=== PATIENT | female | born 1955 | race American Indian/Alaskan Native ===

== ENCOUNTER 2021-12-10 17:48 | Inpatient (IN) | payer MEDICARE ==
[2021-12-10] MEDS ORDERED: levETIRAcetam 1000 MG/NS 0.75% 1,000 MG/100 ML BAG IV ONE ×3 (17:58→20:16)
--- NOTE | 2021-12-10 18:00 | Emergency Department Report ---
ED General Adult HPI - General Chief complaint: Altered Mental Status Stated complaint: ALTER MENTAL Time Seen by Provider: 12/10/21 17:56 Source: family, EMS (Verbal report received from emergency medical services. EMS documentation not available at time of chart dictation ), RN notes reviewed Mode of arrival: Stretcher Limitations: Altered Mental Status, Physical Limitation - History of Present Illness Initial comments: The patient was evaluated in the emergency department for symptoms described in the history of present illness. He/she was evaluated in the context of the global COVID-19 pandemic, which necessitated consideration that the patient might be at risk for infection with the virus that causes COVID-19. Institutional protocols and algorithms that pertain to the evaluation of patients at risk for COVID-19 are in a state of rapid change based on information released by regulatory bodies including the CDC and federal and state organizations. These policies and algorithms were followed during the patient's care in the emergency department. Please note that these policies, procedures and recommendations changed on a rapid basis. Primary care doctor: Dr. Sergio Ramos. Sister: Ms. Andria Yuan; [phone] Son, Mr. Ezekiel Qureshi; [phone] Past medical history: GERD without esophagitis, dysuria, hypertension, hypoka lemia, hyperlipidemia, insomnia, diabetes. Seizure, or convulsion/conversion disorder. Chronic respiratory failure, unspecified with hypoxia or hypercapnia. The patient is a 66-year-old female. She presents to the ER with EMS. The patient is altered, and history is obtained from EMS. EMS reports that they were called by a local [facility], because the patient was found unresponsive, on the floor. It is not known how long the patient was on the floor. It is not known what mechanism proceed to the patient being on the floor. As per [facility] documentation, temperature at the [facility] was 95.6 F, blood pressure 144/88, respirations 18, pulse 72, saturating at 91% on room air, with blood glucose of 223. In the emergency room, the patient is sleepy. She moves 4 extremities in response to painful stimuli. She is altered. She is not able to describe exacerbating, relieving factors or aggravating factors. She is not able to describe qualitative nature of symptoms. Patient immediately seen and evaluated by myself upon arrival with EMS. Appropriate orders initiated, including head of bed elevation, aspiration precautions. While in the emergency room, the patient began to vomit. Head of bed is elevated, and she is aggressively suction. The patient desaturates. She is placed on high flow high humidity nasal cannula. Patient's sister is at the bedside, Mrs. Andria Yuan. Extensive discussion had regarding goals of care and advanced directives. Ms. Yuan provides verbal consent for emergency intubation. She further endorses that the patient still would not to receive CPR or chest compressions if she experiences a cardiac arrest. The patient was intubated in the emergency room. Please see procedure note. No additional history is available at this time. -: unknown - Related Data Allergies Allergy/AdvReac Type Severity Reaction Status Date / Time No Known Allergies Allergy Unverified 12/10/21 19:51 ED Review of Systems ROS: Stated complaint: ALTER MENTAL Other details as noted in HPI Comment: Unobtainable due to pts medical conditions ED Physical Exam - General Limitations: Altered Mental Status, Physical Limitation General appearance: lethargic (Initially the thyroid), obtunded - Head Head exam: Present: atraumatic, normocephalic - Eye Eye exam: Present: normal appearance - ENT ENT exam: Present: normal orophraynx, mucous membranes moist, normal external ear exam, other (Secretions noted in the mouth) - Neck Neck exam: Present: normal inspection. Absent: tenderness, meningismus - Respiratory Respiratory exam: Present: respiratory distress, rhonchi (After intubation) - Cardiovascular Cardiovascular Exam: Present: normal rhythm, tachycardia (After intubation), normal heart sounds. Absent: bradycardia, irregular rhythm, systolic murmur, diastolic murmur, rubs, gallop - GI/Abdominal GI/Abdominal exam: Present: soft, other (Feeding tube noted in abdomen. No redness, pus or streaking noted.). Absent: distended, tenderness, guarding, rebound, rigid, pulsatile mass - External exam: Present: normal external exam (Chaperoned by nurse Liz Diaz) - Extremities Exam Extremities exam: Present: normal inspection, other (2+ pulses noted in the bilateral upper and lower extremities. There is no palpable cord. negative Homans sign. Muscular compartments are soft. The pelvis is stable.). Absent: pedal edema, calf tenderness - Back Exam Back exam: Present: normal inspection. Absent: tenderness, CVA tenderness (R), CVA tenderness (L), paraspinal tenderness, vertebral tenderness - Neurological Exam Neurological exam: Present: altered (Prior to intubation, the patient is breathing spontaneously. There is no obvious facial droop. Pupils are midpoint and minimally reactive to light bilaterally. Moves 4 extremities in response to painful stimuli) - Skin Skin exam: Present: warm, dry, intact, normal color. Absent: rash ED Course Vital Signs 12/10/21 12/10/21 12/10/21 18:45 19:00 23:16 Temperature Pulse Rate 101 H 125 H Respiratory Rate Blood Pressure 141/120 140/100 Blood Pressure [Left] O2 Sat by Pulse 96 100 100 Oximetry 12/11/21 00:11 Temperature 98.9 F Pulse Rate 115 H Respiratory 18 Rate Blood Pressure Blood Pressure 156/88 [Left] O2 Sat by Pulse 100 Oximetry - Reevaluation(s) Reevaluation #1: 12/10/21 19:37 Differential diagnosis, including not limited to: Seizure, pneumonia, obstruction, perforation, UTI, acute respiratory failure, electrolyte derangement, thyroid derangement Assessment and plan: 66-year-old female presenting with acute altered mental status, last known well time not known, and acute respiratory failure. The patient required intubation. The patient vomited twice here in the emergency room prior to intubation. Please note that consent was necessary to be obtained from family, as the patient arrived with a signed DNR, but not assigned DNI. Therefore, the patient's sister is in the emergency room, and we were able to obtain emergent consent from the patient's sister to endotracheally intubate the patient. She has indicated the patient is still currently a DO NOT RESUSCITATE. Laboratory studies are reviewed and appreciated, which demonstrate mild metabolic acidosis, dehydration, hypokalemia, elevated troponin, which is likely a type II troponin leak, nonspecific transaminitis, and her TSH at 0.2. Additional laboratory studies ordered. Patient will be maintained on an appropriate ventilatory strategy. She will be covered empirically with Zosyn, fluids, and potassium supplementation. Currently awaiting CT brain, and abdomen pelvis. Contacted critical care physician on-call, Dr. Blanco. Discussed the patient's history, physical, laboratory studies and imaging studies, and clinical impre ssion. Should no findings be identified that would require transfer to higher level of care, patient is to be admitted to our ICU, to internal medicine, with critical care to follow in consultation. Currently awaiting EKG, additional laboratory studies, and appropriate CT scan. Attempted to contact patient's sister after initial airway management, called listed phone number at [phone]. There was no answer, and I left a voicemail for call back 12/10/21 20:50 CT scan of the brain shows intracranial hemorrhage with obstructive hydrocephalus CT scan brain appreciated. CT cervical spine appreciated. CT scan abdomen pelvis appreciated. Patient does not have corneal reflexes at this time. Pupils do not react to light. There is no gag reflex. This is a very poor neurologic prognosis. Extensive discussion had with patient's sister, Ms. Andria Yuan at the bedside. She articulates understanding. She is specifically not interested in a transfer, EVD, or drain. I did reach out to neurology critical care and neurosurgery at [facility], Dr Alicia Vital Discussed the patient's history, physical, laboratory studies and imaging studies, clinical impression and neurologic examination. They did indicate that the patient could potentially be considered for transfer for EVD drain, however, the patient is very unlikely to make a meaningful neurologic recovery, and is most likely neurologically nonsalvageable. I also discussed this extensively with the patient's sister at the bedside. Patient is most likely neurologically devastated, and not able to recover. She will therefore be admitted to our ICU, for supportive care, aggressive pall iation, and consideration for terminal extubation. Discussed this with sisters , and Family at the bedside Dr Nick Moore accepts on behalf of Dr Shah to ICU Dr Blanco updated - Intubation Time Out Performed: No (Emergency situation. Consent obtained from family) Sedative: Etomidate Mg Given: 20 Paralytic: Rocuronium Mg Given: 100 Laryngoscope: fiberoptic video scope Size: 4 ET Tube Size: 7.5 Tube Secured Depth (cm): 23 Tube Placement Confirmation: visualized tube passing t, equal breath sounds bilat, no breath sounds over epi, confirmation by capnometr Intubation Complications: none ED Medical Decision Making - Lab Data Result diagrams: 12/11/21 09:20 12/11/21 09:20 - Radiology Data Radiology results: pending, report reviewed, image reviewed PELVIS 1 VIEW(S) INDICATION / CLINICAL INFORMATION: fall COMPARISON: None available. FINDINGS: BONES / JOINT(S): No acute fracture or subluxation. No significant arthritis. Patient is status post intramedullary bushra through the left proximal femur. SOFT TISSUES: No significant abnormality. ADDITIONAL FINDINGS: None. Signer Name: Yohan Harding DO Signed: 12/10/2021 5:39 PM Workstation Name: [id number] CHEST 1 VIEW 12/10/2021 5:30 PM INDICATION / CLINICAL INFORMATION: Altered Mental Status. COMPARISON: None available. FINDINGS: SUPPORT DEVICES: None. HEART / MEDIASTINUM: No significant abnormality. LUNGS / PLEURA: Mild interstitial prominence. No pneumothorax. ADDITIONAL FINDINGS: No significant additional findings. IMPRESSION: 1. Mild interstitial prominence which can be seen with pulmonary edema versus atypical infectious process versus interstitial lung disease. Signer Name: Yohan Harding DO Signed: 12/10/2021 5:38 PM Workstation Name: [id number] [facility] [address] [place] [address] XRay Report Signed Patient: UNRULY MOHAN MR#: [id number] : 1955 Acct:[id number] Age/Sex: 66 / F ADM Date: 12/10/21 Loc: ED Attending Dr: Ordering Physician: PATO PARRISH MD Date of Service: 12/10/21 Procedure(s): XR chest 1V ap Accession Number(s): [id number] cc: PATO PARRISH MD Fluoro Time In Minutes: CHEST 1 VIEW INDICATION / CLINICAL INFORMATION: ETT placement. COMPARISON: 12/10/2021 at 1805 hours FINDINGS: SUPPORT DEVICES: Interval placement of ET tube. Tip of the ET tube is approximately 3.6 cm from the aurea and appears to be in satisfactory position. HEART / MEDIASTINUM: No significant abnormality. LUNGS / PLEURA: Bibasilar pulmonary opacities are again noted and not appreciably changed. Upper lung oro remain clear. No visible pleural effusion. No pneumothorax. ADDITIONAL FINDINGS: No significant additional findings. IMPRESSION: 1. Satisfactory positioning of ET tube. 2. Bibasilar pulmonary opacities suspicious for pneumonia. Signer Name: Karolyn Briceno MD Signed: 12/10/2021 7:33 PM Workstation Name: [id number] Transcribed By: JR Dictated By: Karolyn Briceno MD Electronically Authenticated By: Karolyn Briceno MD Signed Date/Time: 12/10/211932 DD/ 30 TD/TT: T abdomen pelvis wo con INDICATION / CLINICAL INFORMATION: Nausea and vomiting altered mental status. TECHNIQUE: Axial CT imaging of abdomen and pelvis was obtained without contrast. Coronal and sagittal reformatted imaging obtained and reviewed. All CT scans at this location are performed using CT dose reduction for ALARA by means of automated exposure control. COMPARISON: Recent chest radiograph 12/10/2021 at 1913 hours FINDINGS: CT abdomen without contrast demonstrates normal appearance of the liver, spleen, kidneys, and adrenal glands. Gallbladder appears to be absent. Multiple coarse calcifications are seen throughout the pancreas consistent with chronic calcific pancreatitis. No acute inflammatory process noted surrounding the pancreas. Pancreatic duct is mildly dilated most likely due to pancreatic atrophy. Gastrostomy tube is present. The balloon insufflated within the gastric antrum. Large amount of gas is present within the lumen of the stomach. CT pelvis without contrast demonstr ates prominent distention of the urinary bladder. No mass, free fluid, or focal inflammatory process is noted. A normal appendix is present in the right lower quadrant. GI tract is grossly normal. Visualized lung bases demonstrate patchy pulmonary opacities bilaterally. There is more focal consolidation in the left lung base. Findings are certainly concerning for pneumonia. No acute significant osseous abnormality noted. All IMPRESSION: 1. No acute finding within the abdomen or pelvis. 2. Prominent gaseous distention of the stomach. Gastrostomy tube is in satisfactory position. 3. Bibasilar pulmonary opacities with focal consolidation in the left lung base, most likely pneumonia. 4. Chron ic calcific pancreatitis. Signer Name: Karolyn Briceno MD Signed: 12/10/2021 7:[address] CERVICAL SPINE WITHOUT CONTRAST INDICATION: fall found down. TECHNIQUE: Axial CT images of the spine were obtained. Sagittal and coronal reformatted images were produced. All CT scans at this location are performed using CT dose reduction for ALARA by means of automated exposure control. COMPARISON: None a vailable. FINDINGS: ACUTE FRACTURE(S) OR SUBLUXATION: None. SPINAL DEGENERATIVE CHANGES: There is mild degenerative disc disease at C3-4 and mild degenerative joint disease in the atlantodental articulation. PARASPINAL SOFT TISSUES: No soft tissue swelling or other acute abnormalities. ADDITIONAL FINDINGS: No significant additional findings. IMPRESSION: 1. No acute fracture or subluxation in the spine in neutral position. Signer Name: Leroy Moore MD Signed: 12/10/2021 7:33 PM Workstation Name: [id number] CT head/brain wo con INDICATION: Altered Mental Status. TECHNIQUE: All CT scan s at this location are performed using CT dose reduction for ALARA by means of automated exposure control. COMPARISON: None available. FINDINGS: There is a large right basal ganglia hemorrhage measuring 5 cm with decompression into the ventricular system and moderate hydrocephalus. There is leftward midline shift of about 1 cm. The included paranasal sinuses and mastoid air cells are clear. The orbits appear unremarkable. IMPRESSION: 1. Large right basal ganglia hemorrhage with decompression into the ventricular system and hydrocephalus. Findings called to Dr. Parrish at 7:30 PM. Signer Name: Leroy Moore MD Signed: 12/10/2021 7:30 PM Workstation Name: [id number] Critical Care Time: Yes Critical care time in (mins) excluding proc time.: 45 Critical care attestation.: If time is entered above; I have spent that time in minutes in the direct care of this critically ill patient, excluding procedure time. ED Disposition Clinical Impression: Acute respiratory failure, Acute encephalopathy, Hypokalemia, Dehydration, Acute intracranial hemorrhage Disposition: 09 ADMITTED INPATIENT Is pt being admited?: Yes Does the pt Need Aspirin: No Condition: Critical
[2021-12-10] MEDS ORDERED: ONDANSETRON 4 MG/2 ML INJ IV ONE (18:20)
[2021-12-10] MEDS ORDERED: ETOMIDATE 20 MG/10 ML INJ IV ONE (18:36)
[2021-12-10] MEDS ORDERED: ROCURONIUM 50 MG/5 ML INJ IV ONE (18:36)
--- NOTE | 2021-12-10 18:42 | XRay Report ---
CHEST 1 VIEW 12/10/2021 5:30 PM INDICATION / CLINICAL INFORMATION: Altered Mental Status. COMPARISON: None available. FINDINGS: SUPPORT DEVICES: None. HEART / MEDIASTINUM: No significant abnormality. LUNGS / PLEURA: Mild interstitial prominence. No pneumothorax. ADDITIONAL FINDINGS: No significant additional findings. IMPRESSION: 1. Mild interstitial prominence which can be seen with pulmonary edema versus atypical infectious pro cess versus interstitial lung disease. Signer Name: Yohan Harding DO Signed: 12/10/2021 6:38 PM Workstation Name: [id number]
--- NOTE | 2021-12-10 18:43 | XRay Report ---
PELVIS 1 VIEW(S) INDICATION / CLINICAL INFORMATION: fall COMPARISON: None available. FINDINGS: BONES / JOINT(S): No acute fracture or subluxation. No significant arthritis. Patient is status post intramedullary bushra through the left proximal femur. SOFT TISSUES: No significant abnormality. ADDITIONAL FINDINGS: None. Signer Name: Yohan Harding DO Signed: 12/10/2021 6:39 PM Workstation Name: [id number]
[2021-12-10 18:55] LABS: Hematocrit 37.6 % (30.3-42.9); Hemoglobin 12.8 gm/dl (10.1-14.3); Mean Corpuscular HGB Conc 34 % (30-34); Mean Corpuscular Volume 87 fl (79-97); Platelet Count 210 K/mm3 (140-440); Red Blood Count 4.33 M/mm3 (3.65-5.03); Red Cell Distribution Width 13.2 % (13.2-15.2)
[2021-12-10] MEDS ORDERED: MINERAL OIL/PETROLATUM, WHITE OPHTH OINT 3.5 GM OU PRN (19:05)
[2021-12-10] MEDS ORDERED: LIP THERAPY VASELINE TP PRN (19:05)
[2021-12-10] MEDS ORDERED: fentaNYL 100 MCG/2 ML INJ IV PRN (19:05)
[2021-12-10] MEDS ORDERED: PIPERACIL/TAZOBACTA 4.5/NS 100 4.5 GM/100 ML VIAL IV ONE (19:05)
[2021-12-10 19:09] LABS: INR 0.92 (0.87-1.13)
[2021-12-10 19:20] LABS: Alanine Aminotransferase 65 units/L (7-56); Albumin 4.4 g/dL (3.9-5); Blood Urea Nitrogen 9 mg/dL (7-17); Calcium 9.6 mg/dL (8.4-10.2); Hemolysis Index 2
[2021-12-10 19:25] LABS: BUN/Creatinine Ratio 13
[2021-12-10] MEDS ORDERED: SODIUM CHLORIDE 0.9% 500 ML 500 ML IV ONE (19:28)
--- NOTE | 2021-12-10 19:37 | XRay Report ---
CHEST 1 VIEW INDICATION / CLINICAL INFORMATION: ETT placement. COMPARISON: 12/10/2021 at 1805 hours FINDINGS: SUPPORT DEVICES: Interval placement of ET tube. Tip of the ET tube is approximately 3.6 cm from the c barby and appears to be in satisfactory position. HEART / MEDIASTINUM: No significant abnormality. LUNGS / PLEURA: Bibasilar pulmonary opacities are again noted and not appreciably changed. Upper lung oro remain clear. No visible pleural effusion. No pneumothorax. ADDITIONAL FINDINGS: No significant additional findings. IMPRESSION: 1. Satisfactory positioning of ET tube. 2. Bibasilar pulmonary opacities suspicious for pneumonia. Signer Name: Karolyn Briceno MD Signed: 12/10/2021 7:33 PM Workstation Name: [id number]
[2021-12-10] MEDS ORDERED: fentaNYL DRIP Premix 2,000 MCG/100 ML BAG IV SCH (20:00)
--- NOTE | 2021-12-10 20:34 | Cat Scan Report ---
CT head/brain wo con INDICATION: Altered Mental Status. TECHNIQUE: All CT scans at this location are performed using CT dose reduction for ALARA by means of automated e xposure control. COMPARISON: None available. FINDINGS: There is a large right basal ganglia hemorrhage measuring 5 cm with decompression into the ventricula r system and moderate hydrocephalus. There is leftward midline shift of about 1 cm. The included paranasal sinuses and mastoid air cells are clear. The orbits appear unremarkable. IMPRESSION: 1. Large right basal ganglia hemorrhage with decompression into the ventricular system and hydrocepha cierra. Findings called to Dr. Parrish at 7:30 PM. Signer Name: Leroy Moore MD Signed: 12/10/2021 8:30 PM Workstation Name: [id number]
--- NOTE | 2021-12-10 20:37 | Cat Scan Report ---
CT CERVICAL SPINE WITHOUT CONTRAST INDICATION: fall found down. TECHNIQUE: Axial CT images of the spine were obtained. Sagittal and coronal reformatted images were produced. Al l CT scans at this location are performed using CT dose reduction for ALARA by means of automated exp osure control. COMPARISON: None available. FINDINGS: ACUTE FRACTURE(S) OR SUBLUXATION: None. SPINAL DEGENERATIVE CHANGES: There is mild degenerative disc disease at C3-4 and mild degenerative melanie int disease in the atlantodental articulation. PARASPINAL SOFT TISSUES: No soft tissue swelling or other acute abnormalities. ADDITIONAL FINDINGS: No significant additional findings. IMPRESSION: 1. No acute fracture or subluxation in the spine in neutral position. Signer Name: Leroy Moore MD Signed: 12/10/2021 8:33 PM Workstation Name: [id number]
--- NOTE | 2021-12-10 20:47 | Cat Scan Report ---
CT abdomen pelvis wo con INDICATION / CLINICAL INFORMATION: Nausea and vomiting altered mental status. TECHNIQUE: Axial CT imaging of abdomen and pelvis was obtained without contrast. Coronal and sagittal reformatte d imaging obtained and reviewed. All CT scans at this location are performed using CT dose reduction for ALARA by means of automated exposure control. COMPARISON: Recent chest radiograph 12/10/2021 at 1913 hours FINDINGS: CT abdomen without contrast demonstrates normal appearance of the liver, spleen, kidneys, and adrenal glands. Gallbladder appears to be absent. Multiple coarse calcifications are seen throughout the pancreas consistent with chronic calcific panc reatitis. No acute inflammatory process noted surrounding the pancreas. Pancreatic duct is mildly dil ated most likely due to pancreatic atrophy. Gastrostomy tube is present. The balloon insufflated within the gastric antrum. Large amount of gas i s present within the lumen of the stomach. CT pelvis without contrast demonstrates prominent distention of the urinary bladder. No mass, free fl uid, or focal inflammatory process is noted. A normal appendix is present in the right lower quadrant . GI tract is grossly normal. Visualized lung bases demonstrate patchy pulmonary opacities bilaterally. There is more focal consoli dation in the left lung base. Findings are certainly concerning for pneumonia. No acute significant osseous abnormality noted. All IMPRESSION: 1. No acute finding within the abdomen or pelvis. 2. Prominent gaseous distention of the stomach. Gastrostomy tube is in satisfactory position. 3. Bibasilar pulmonary opacities with focal consolidation in the left lung base, most likely pneumoni a. 4. Chronic calcific pancreatitis. Signer Name: Karolyn Briceno MD Signed: 12/10/2021 8:43 PM Workstation Name: [id number]
[2021-12-10] MEDS ORDERED: niCARdipine DRIP 40 MG/200 ML BAG IV ONE (20:49)
[2021-12-10] MEDS ORDERED: MAGNESIUM SULFATE 2 GM/50 ML BAG IV ONE (21:02)
[2021-12-10] MEDS ORDERED: MORPHINE 2 MG/1 ML INJ IV PRN ×2 (21:02→22:02)
[2021-12-10] MEDS ORDERED: ACETAMINOPHEN 650 MG RECT SUPP PR PRN (21:02)
[2021-12-10] MEDS ORDERED: MORPHINE 4 MG/1 ML INJ IV PRN ×2 (21:02→22:02)
[2021-12-10 21:03] LABS: Hepatitis B Surface Antigen Non-Reactive (Negative); Hepatitis C Virus Antibody Non-Reactive (NonReactive)
[2021-12-10] MEDS ORDERED: ALBUTEROL 2.5 MG/3 ML NEBU IH PRN (22:02)
[2021-12-10] MEDS ORDERED: ONDANSETRON 4 MG/2 ML INJ IV PRN (22:02)
[2021-12-10] MEDS ORDERED: ACETAMINOPHEN 325 MG TAB PO PRN (22:02)
--- NOTE | 2021-12-10 22:09 | History and Physical Report ---
History of Present Illness Date of examination: 12/10/21 Date of admission: 12/10/21 Chief complaint: Altered mental status History of present illness: 66-year-old female. She presents to the ER with EMS. The patient is altered, and history is obtained from EMS. EMS reports that they were called by a local shelter, because the patient was found unresponsive, on the floor. It is not known how long the patient was on the floor. It is not known what mechanism proceed to the patient being on the floor. As per shelter documentation, temperature at the shelter was 95.6 F, blood pressure 144/88, respirations 18, pulse 72, saturating at 91% on room air, with blood glucose of 223. In the emergency room, the patient is sleepy. She moves 4 extremities in response to painful stimuli. She is altered. She is not able to describe exacerbating, relieving factors or aggravating factors. She is not able to describe qualitative nature of symptoms. Patient immediately seen and evaluated by myself upon arrival with EMS. Appropriate orders initiated, including head of bed elevation, aspiration precautions. While in the emergency room, the patient began to vomit. Head of bed is elevated, and she is aggressively suction. The patient desaturates. She is placed on high flow high humidity nasal cannula. Patient's sister is at the bedside, Mrs. Andria Yuan. Extensive discussion had regarding goals of care and advanced directives. Ms. Yuan provides verbal consent for emergency intubation. She further endorses that the patient still would not to receive CPR or chest compressions if she experiences a cardiac arrest. The patient was intubated in the emergency room. CT scan of the brain shows intracranial hemorrhage with obstructive hydrocephalus CT scan brain appreciated. CT cervical spine appreciated. CT scan abdomen pelvis appreciated. Patient does not have corneal reflexes at this time. Pupils do not react to li ght. There is no gag reflex. This is a very poor neurologic prognosis. Extensive discussion had with patient's sister, Ms. Andria Yuan at the bedside. She articulates understanding. She is specifically not interested in a transfer, EVD, or drain. ER did reach out to neurology critical care and neurosurgery at [facility], Dr Alicia Vital Discussed the patient's history, physical, laboratory studies and imaging studies, clinical impression and neurologic examination. They did indicate that the patient could potentially be considered for transfer for EVD drain, however, the patient is very unlikely to make a meaningful neurologic recovery, and is most likely neurologically nonsalvageable. ER doctor also discussed this extensively with the patient's sister at the bedside. Patient is most likely neurologically devastated, and not able to recover. She will therefore be admitted to our ICU, for supportive care, aggressive palliation, and consideration for terminal extubation. Discussed this with sisters , and Family at the bedside. Critical care is consulted. Patient is DNR. Patient family wants comfort care.please talk with the family for further care. Past History Past Medical History: hypertension Past Surgical History: No surgical history Social history: no significant social history Family history: no significant family history Medications and Allergies Allergies Allergy/AdvReac Type Severity Reaction Status Date / Time No Known Allergies Allergy Unverified 12/10/21 19:51 Active Meds: Active Medications Acetaminophen (Acetaminophen 650 Mg Rect Supp) 650 mg NV Q6H PRN PRN Reason: Pain MILD(1-3)/Fever >100.5/ORTA Acetaminophen (Acetaminophen 325 Mg Tab) 650 mg PO Q4H PRN PRN Reason: Pain MILD(1-3)/Fever >100.5/ORTA Albuterol (Albuterol 2.5 Mg/3 Ml Nebu) 2.5 mg IH Q3HRT PRN PRN Reason: Shortness Of Breath Albuterol/Ipratropium (Ipratropium/Albuterol Sulfate 3 Ml Ampul.Neb) 1 ampul IH Q6HRT JULIETTE Famotidine (Famotidine 20 Mg/2 Ml Inj) 20 mg IV BID JULIETTE Fentanyl (Fentanyl 100 Mcg/2 Ml Inj) 50 mcg IV Q10MIN PRN PRN Reason: ANALGESIA Hydrophilic Ointment (Lip Therapy Vaseline) 1 applic TP Q2HR PRN PRN Reason: Dry Lips Fentanyl Citrate (Fentanyl Drip Premix) 2,000 mcg in 100 mls @ 4.99 mls/hr IV TITR JULIETTE; Protocol Potassium Chloride (Kcl 10meq/100ml) 10 meq in 100 mls @ 100 mls/hr IV Q1H JULIETTE Stop: 12/10/21 23:59 Nicardipine/Sodium Chloride (Cardene Drip 40 Mg/200 Ml) 40 mg in 200 mls @ 25 mls/hr IV ONCE ONE; Protocol Stop: 12/11/21 04:48 Potassium Chloride/Dextrose/Sod Cl (D5w/0.45% Nacl/Kcl 20 Meq) 20 meq in 1,000 mls @ 100 mls/hr IV DIRECT JULIETTE Piperacillin Sod/Tazobactam Sod (Zosyn/Ns 4.5gm/100ml) 4.5 gm in 100 mls @ 200 mls/hr IV Q8H JULIETTE; Protocol Morphine Sulfate (Morphine 2 Mg/1 Ml Inj) 2 mg IV Q4H PRN PRN Reason: Pain, Moderate (4-6) Morphine Sulfate (Morphine 4 Mg/1 Ml Inj) 4 mg IV Q4H PRN PRN Reason: Pain , Severe (7-10) Morphine Sulfate (Morphine 2 Mg/1 Ml Inj) 2 mg IV Q4H PRN PRN Reason: Pain, Moderate (4-6) Morphine Sulfate (Morphine 4 Mg/1 Ml Inj) 4 mg IV Q4H PRN PRN Reason: Pain , Severe (7-10) Multi-Ingred Cream/Lotion/Oil/Oint (Mineral Oil/Petrolatum, White Ophth Oint 3.5 Gm) 1 applic OU Q4HR PRN PRN Reason: Dry Eye(s) Ondansetron HCl (Ondansetron 4 Mg/2 Ml Inj) 4 mg IV Q8H PRN PRN Reason: Nausea And Vomiting Senna/Docusate Sodium (Sennosides/Docusate Sodium 8.6/50 Mg Tab) 1 tab FEEDTUBE BID JULIETTE Sodium Chloride (Sodium Chloride 0.9% 10 Ml Flush Syringe) 10 ml IV BID JULIETTE Sodium Chloride (Sodium Chloride 0.9% 10 Ml Flush Syringe) 10 ml IV PRN PRN PRN Reason: LINE FLUSH Sodium Chloride (Sodium Chloride 0.9% 10 Ml Flush Syringe) 10 ml IV BID JULIETTE Sodium Chloride (Sodium Chloride 0.9% 10 Ml Flush Syringe) 10 ml IV PRN PRN PRN Reason: LINE FLUSH Review of Systems All systems: negative Constitutional: fatigue, malaise, lethargy Cardiovascular: shortness of breath, dyspnea on exertion Exam - Constitutional Vitals: Temp Pulse Resp BP Pulse Ox 101 H 141/120 100 12/10/21 19:00 12/10/21 19:00 12/10/21 19:00 General appearance: Present: no acute distress, well-nourished - EENT Eyes: Present: PERRL ENT: hearing intact, clear oral mucosa - Neck Neck: Present: supple, normal ROM - Respiratory Respiratory effort: normal Respiratory: bilateral: CTA - Cardiovascular Heart Sounds: Present: S1 & S2. Absent: rub, click - Extremities Extremities: pulses symmetrical, No edema Peripheral Pulses: within normal limits - Abdominal General gastrointestinal: Present: soft, non-tender, non-distended, normal bowel sounds Female genitourinary: Present: normal - Integumentary Integumentary: Present: clear, warm, dry - Musculoskeletal Musculoskeletal: gait normal, strength equal bilaterally - Psychiatric Psychiatric: other (Patient is altered mental status and patient is on vent) - Neurologic Neurologic: CNII-XII intact, moves all extremities HEART Score - HEART Score Troponin: Troponin T 0.090 ng/mL (0.00-0.029) H 12/10/21 18:42 Results - Labs CBC & Chem 7: 12/10/21 18:42 12/10/21 18:42 Labs: Laboratory Last Values WBC 11.2 K/mm3 (4.5-11.0) H 12/10/21 18:42 RBC 4.33 M/mm3 (3.65-5.03) 12/10/21 18:42 Hgb 12.8 gm/dl (10.1-14.3) 12/10/21 18:42 Hct 37.6 % (30.3-42.9) 12/10/21 18:42 MCV 87 fl (79-97) 12/10/21 18:42 MCH 30 pg (28-32) 12/10/21 18:42 MCHC 34 % (30-34) 12/10/21 18:42 RDW 13.2 % (13.2-15.2) 12/10/21 18:42 Plt Count 210 K/mm3 (140-440) 12/10/21 18:42 PT 13.3 Sec. (12.2-14.9) 12/10/21 18:42 INR 0.92 (0.87-1.13) 12/10/21 18:42 Sodium 137 mmol/L (137-145) 12/10/21 18:42 Potassium 3.3 mmol/L (3.6-5.0) L 12/10/21 18:42 Chloride 93.1 mmol/L (98-107) L 12/10/21 18:42 Carbon Dioxide 24 mmol/L (22-30) 12/10/21 18:42 Anion Gap 23 mmol/L 12/10/21 18:42 BUN 9 mg/dL (7-17) 12/10/21 18:42 Creatinine 0.7 mg/dL (0.6-1.2) 12/10/21 18:42 Estimated GFR > 60 ml/min 12/10/21 18:42 BUN/Creatinine Ratio 13 % 12/10/21 18:42 Glucose 253 mg/dL (65-100) H 12/10/21 18:42 Lactic Acid 4.70 mmol/L (0.7-2.0) H* 12/10/21 20:00 Calcium 9.6 mg/dL (8.4-10.2) 12/10/21 18:42 Magnesium 1.40 mg/dL (1.7-2.3) L 12/10/21 19:43 Total Bilirubin 0.80 mg/dL (0.1-1.2) 12/10/21 18:42 AST 98 units/L (5-40) H 12/10/21 18:42 ALT 65 units/L (7-56) H 12/10/21 18:42 Alkaline Phosphatase 147 units/L (35-129) H 12/10/21 18:42 Ammonia 13.0 umol/L (25-60) L 12/10/21 18:42 Troponin T 0.090 ng/mL (0.00-0.029) H 12/10/21 18:42 Total Protein 8.9 g/dL (6.3-8.2) H 12/10/21 18:42 Albumin 4.4 g/dL (3.9-5) 12/10/21 18:42 Albumin/Globulin Ratio 1.0 % 12/10/21 18:42 TSH 0.246 mlU/mL (0.270-4.200) L 12/10/21 18:42 Free T4 1.33 ng/dL (0.76-1.46) 12/10/21 19:43 Salicylates < 0.3 mg/dL (2.8-20.0) L 12/10/21 18:42 Acetaminophen 5.0 ug/mL (10.0-30.0) L 12/10/21 18:42 Plasma/Serum Alcohol < 0.01 % (0-0.07) 12/10/21 18:42 Hepatitis A IgM Ab Non-reactive (NonReactive) 12/10/21 19:43 Hep Bs Antigen Non-reactive (Negative) 12/10/21 19:43 Hep B Core IgM Ab Non-reactive (NonReactive) 12/10/21 19:43 Hepatitis C Antibody Non-reactive (NonReactive) 12/10/21 19:43 Blood Type B POSITIVE 12/10/21 18:42 Antibody Screen Negative 12/10/21 18:42 - Imaging and Cardiology CT Scan - head: report reviewed Assessment and Plan VTE prophylaxis?: Mechanical Plan of care discussed with patient/family: Yes - Patient Problems (1) Acute respiratory failure Status: Acute Plan to address problem: Admit the patient to the critical care unit. Patient is status post intubation. DuoNeb by nebulizer every 4 hours. Albuterol via nebulizer every 4 hours as needed. Critical care evaluation. Patient is DNR (2) Acute intracranial hemorrhage Status: Acute Plan to address problem: CT scan of the brain shows intracranial hemorrhage with obstructive hydrocephalus CT scan brain appreciated. CT cervical spine appreciated. CT scan abdomen pelvis appreciated. Patient does not have corneal reflexes at this time. Pupils do not react to light. There is no gag reflex. This is a very poor neurologic prognosis. Extensive discussion had with patient's sister, Ms. Andria Yuan at the bedside. She articulates abbi ramos. She is specifically not interested in a transfer, EVD, or drain. Er did reach out to neurology critical care and neurosurgery at [facility], Dr Alicia Vital Discussed the patient's history, physical, laboratory studies and imaging studies, clinical impression and neurologic examination. They did indicate that the patient could potentially be considered for transfer for EVD drain, however, the patient is very unlikely to make a meaningful neurologic recovery, and is most likely neurologically nonsalvageable. ER also discussed this extensively with the patient's sister at the bedside. Patient is most likely neurologically devastated, and not able to recover. She will therefore be admitted to our ICU, for supportive care, aggressive palliation, and consideration for terminal extubation. Discussed this with sisters , and Family at the bedside. (3) Hypertension Status: Acute Plan to address problem: Patient is on nicardipine drip for blood pressure. We will monitor the blood pressure closely (4) Acute encephalopathy Status: Acute Plan to address problem: CT scan of the brain shows intracranial hemorrhage with obstructive hydrocephalus CT scan brain appreciated. CT cervical spine appreciated. CT scan abdomen pelvis appreciated. Patient does not have corneal reflexes at this time. Pupils do not react to light. There is no gag reflex. This is a very poor neurologic prognosis. Extensive discussion had with patient's sister, Ms. Andria Yuan at the bedside. She articulates understa nding. She is specifically not interested in a transfer, EVD, or drain. I did reach out to neurology critical care and neurosurgery at [facility], Dr Alicia Vital Discussed the patient's history, physical, laboratory studies and imaging studies, clinical impression and neurologic examination. They did indicate that the patient could potentially be considered for transfer for EVD drain, however, the patient is very unlikely to make a meaningful neurologic recovery, and is most likely neurologically nonsalvageable. I also discussed this extensively with the patient's sister at the bedside. Patient is most likely neurologically devastated, and not able to recover. She will therefore be admitted to our ICU, for supportive care, aggressive palliation, and consideration for terminal extubation. Discussed this with sisters , and Family at the bedside (5) Dehydration Status: Acute Plan to address problem: D5 half-normal saline with 20 of potassium at the rate of 100 cc/h. We will rehydrate the patient closely. Recheck BMP in the morning (6) Hypokalemia Status: Acute Plan to address problem: D5 half-normal saline with 20 of potassium at the rate of 100 cc/h. We will rehydrate the patient closely. Recheck BMP in the morning (7) DVT prophylaxis Status: Acute Plan to address problem: SCD for DVT prophylaxis. Pepcid 20 mg IV every 12 hours for GI prophylaxis. Patient is DNR
[2021-12-10] MEDS: PIPERACIL/TAZOBACTA 4.5/NS 100 4.5 GM/100 ML VIAL IV SCH (23:00)
[2021-12-10] MEDS ORDERED: D5W/0.45% NACL/KCL 20 MEQ 20 MEQ/1,000 ML BAG IV SCH (23:00)
[2021-12-10] MEDS: FAMOTIDINE 20 MG/2 ML INJ IV SCH (23:29)
[2021-12-11] MEDS ORDERED: IPRATROPIUM/ALBUTEROL SULFATE 3 ML AMPUL.NEB IH SCH (02:00)
[2021-12-11] MEDS: POTASSIUM CHLORIDE 10 MEQ 10 MEQ/100 ML BAG IV SCH ×4 (02:00→11:37)
--- NOTE | 2021-12-11 03:16 | XRay Report ---
CHEST 1 VIEW 12/11/2021 2:05 AM INDICATION / CLINICAL INFORMATION: follow up respiratory failure. COMPARISON: 12/10/2021 FINDINGS: SUPPORT DEVICES: Stable, satisfactory device positioning. HEART / MEDIASTINUM: No significant abnormality. LUNGS / PLEURA: Mild increased interstitial prominence and opacities in the lower lungs slightly incr eased No pneumothorax. Signer Name: Carlyle Sigala MD Signed: 12/11/2021 3:11 AM Workstation Name: [id number]
[2021-12-11 05:11] LABS: ABG HCO3 22.3 mmol/L (20.0-26.0); ABG Methemoglobin 0.3 % (0.0-1.5); ABG Oxygen Saturation 98.3 % (95.0-99.0); ABG PCO2 26.8 mm Hg; ABG PH 7.539 pH Units (7.350-7.450); ABG PO2 101.3 mm Hg (80.0-90.0)
[2021-12-11] MEDS: PIPERACIL/TAZOBACTA 4.5/NS 100 4.5 GM/100 ML VIAL IV SCH ×2 (08:30→15:54)
[2021-12-11 10:24] LABS: Basophils % (Auto) 0.3 % (0.0-1.8); Hematocrit 43.1 % (30.3-42.9); Hemoglobin 13.8 gm/dl (10.1-14.3); Lymphocytes # (Auto) 1.8 K/mm3 (1.2-5.4); Lymphocytes % (Auto) 11.6 % (13.4-35.0); Mean Corpuscular HGB Conc 32 % (30-34); Mean Corpuscular Volume 89 fl (79-97); Monocytes # (Auto) 0.9 K/mm3 (0.0-0.8); Monocytes % (Auto) 5.9 % (0.0-7.3); Platelet Count 211 K/mm3 (140-440); Red Blood Count 4.85 M/mm3 (3.65-5.03); Red Cell Distribution Width 12.9 % (13.2-15.2)
[2021-12-11] MEDS: FAMOTIDINE 20 MG/2 ML INJ IV SCH (10:41)
[2021-12-11] MEDS: SENNOSIDES/DOCUSATE SODIUM 8.6/50 MG TAB FEEDTUBE SCH ×2 (10:41→11:37)
[2021-12-11 10:44] LABS: BUN/Creatinine Ratio 12; Blood Urea Nitrogen 11 mg/dL (7-17); Calcium 9.4 mg/dL (8.4-10.2); Hemolysis Index 11
--- NOTE | 2021-12-11 10:51 | Consultation ---
History of Present Illness Consult date: 12/11/21 Requesting physician: PATO RAIN Reason for consult: other History of present illness: 66 y/[facility] admitted with altered mental state and required intubation on arrival. Subsequently found to have large brain bleed. Per ER note, family is not interested in aggressive measures and understands the degree of neurological devastation and wish to pursue comfort measures. Currently patient is unresponsive on vent. Breathing over vent. Past History Past Medical History: hypertension Past Surgical History: No surgical history Social history: no significant social history Family history: no significant family history Medications and Allergies Allergies Allergy/AdvReac Type Severity Reaction Status Date / Time No Known Allergies Allergy Unverified 12/10/21 19:51 Active Meds: Active Medications Acetaminophen (Acetaminophen 325 Mg Tab) 650 mg PO Q4H PRN PRN Reason: Pain MILD(1-3)/Fever >100.5/ORTA Albuterol (Albuterol 2.5 Mg/3 Ml Nebu) 2.5 mg IH Q3HRT PRN PRN Reason: Shortness Of Breath Famotidine (Famotidine 20 Mg/2 Ml Inj) 20 mg IV BID JULIETTE Last Admin: 12/11/21 10:41 Dose: 20 mg Fentanyl (Fentanyl 100 Mcg/2 Ml Inj) 50 mcg IV Q10MIN PRN PRN Reason: ANALGESIA Hydrophilic Ointment (Lip Therapy Vaseline) 1 applic TP Q2HR PRN PRN Reason: Dry Lips Fentanyl Citrate (Fentanyl Drip Premix) 2,000 mcg in 100 mls @ 4.99 mls/hr IV TITR JULIETTE; Protocol Potassium Chloride/Dextrose/Sod Cl (D5w/0.45% Nacl/Kcl 20 Meq) 20 meq in 1,000 mls @ 100 mls/hr IV DIRECT JULIETTE Last Admin: 12/11/21 02:00 Dose: 100 mls/hr Piperacillin Sod/Tazobactam Sod (Zosyn/Ns 4.5gm/100ml) 4.5 gm in 100 mls @ 200 mls/hr IV Q8H JULIETTE; Protocol Last Admin: 12/10/21 23:00 Dose: 200 mls/hr Morphine Sulfate (Morphine 2 Mg/1 Ml Inj) 2 mg IV Q4H PRN PRN Reason: Pain, Moderate (4-6) Morphine Sulfate (Morphine 4 Mg/1 Ml Inj) 4 mg IV Q4H PRN PRN Reason: Pain , Severe (7-10) Multi-Ingred Cream/Lotion/Oil/Oint (Mineral Oil/Petrolatum, White Ophth Oint 3.5 Gm) 1 applic OU Q4HR PRN PRN Reason: Dry Eye(s) Ondansetron HCl (Ondansetron 4 Mg/2 Ml Inj) 4 mg IV Q8H PRN PRN Reason: Nausea And Vomiting Senna/Docusate Sodium (Sennosides/Docusate Sodium 8.6/50 Mg Tab) 1 tab FEEDTUBE BID [facility] Last Admin: 12/11/21 10:41 Dose: 1 tab Sodium Chloride (Sodium Chloride 0.9% 10 Ml Flush Syringe) 10 ml IV BID [facility] Last Admin: 12/11/21 10:41 Dose: 10 ml Sodium Chloride (Sodium Chloride 0.9% 10 Ml Flush Syringe) 10 ml IV PRN PRN PRN Reason: LINE FLUSH Review of Systems ROS unobtainable: due to endotracheal tube, due to mental status Physical Examination Vital signs: Vital Signs Pulse Ox 96 12/10/21 18:45 General appearance: comatose Eyes: non-icteric, other (pupils fixed and dilated, not responsive) ENT: other (orally intubated) Neck: supple Effort: mildly labored Ascultation: Bilateral: diminished breath sounds Percussion: Bilateral: not dull Cardiovascular: other (sinus tach) Gastrointestinal: normoactive bowel sounds Extremities: no edema unable to assess, other (no cough, no gag) Results - Laboratory Findings CBC and BMP: 12/11/21 09:20 12/11/21 09:20 ABG ABG pH 7.539 pH Units (7.350-7.450) H 12/11/21 05:00 ABG pCO2 26.8 mm Hg 12/11/21 05:00 ABG pO2 101.3 mm Hg (80.0-90.0) H 12/11/21 05:00 ABG O2 Saturation 98.3 % (95.0-99.0) 12/11/21 05:00 PT/INR, D-dimer PT 13.3 Sec. (12.2-14.9) 12/10/21 18:42 INR 0.92 (0.87-1.13) 12/10/21 18:42 Abnormal lab findings: Abnormal Labs 12/10/21 12/10/21 12/10/21 18:42 18:42 18:42 WBC Hct RDW Lymph % (Auto) Morrow # (Auto) Seg Neutrophils % Seg Neutrophils # ABG pH ABG pO2 Potassium 3.3 L Chloride 93.1 L Carbon Dioxide Glucose 253 H POC Glucose Lactic Acid Magnesium AST 98 H ALT 65 H Alkaline Phosphatase 147 H Ammonia 13.0 L Troponin T 0.090 H Total Protein 8.9 H TSH 0.246 L Salicylates Acetaminophen 12/10/21 12/10/21 12/10/21 18:42 18:42 18:42 WBC 11.2 H Hct RDW Lymph % (Auto) Morrow # (Auto) Seg Neutrophils % Seg Neutrophils # ABG pH ABG pO2 Potassium Chloride Carbon Dioxide Glucose POC Glucose Lactic Acid Magnesium AST ALT Alkaline Phosphatase Ammonia Troponin T Total Protein TSH Salicylates < 0.3 L Acetaminophen 5.0 L 12/10/21 12/10/21 12/11/21 19:43 20:00 05:00 WBC Hct RDW Lymph % (Auto) Morrow # (Auto) Seg Neutrophils % Seg Neutrophils # ABG pH 7.539 H ABG pO2 101.3 H Potassium Chloride Carbon Dioxide Glucose POC Glucose Lactic Acid 4.70 H* Magnesium 1.40 L AST ALT Alkaline Phosphatase Ammonia Troponin T Total Protein TSH Salicylates Acetaminophen 12/11/21 12/11/21 12/11/21 07:25 09:20 09:20 WBC 15.2 H Hct 43.1 H RDW 12.9 L Lymph % (Auto) 11.6 L Morrow # (Auto) 0.9 H Seg Neutrophils % 82.2 H Seg Neutrophils # 12.5 H ABG pH ABG pO2 Potassium Chloride Carbon Dioxide Glucose POC Glucose 472 H Lactic Acid 7.10 H* Magnesium AST ALT Alkaline Phosphatase Ammonia Troponin T Total Protein TSH Salicylates Acetaminophen 12/11/21 09:20 WBC Hct RDW Lymph % (Auto) Morrow # (Auto) Seg Neutrophils % Seg Neutrophils # ABG pH ABG pO2 Potassium Chloride 94.1 L Carbon Dioxide 20 L Glucose 504 H* POC Glucose Lactic Acid Magnesium AST ALT Alkaline Phosphatase Ammonia Troponin T Total Protein TSH Salicylates Acetaminophen - Diagnostic Findings Chest x-ray: image reviewed Assessment and Plan 66 y/o female with large intracranial hemorrhage, altered mental state, acute respiratory failure, hyperglycemia and hypokalemia with hypomagnesemia 1. Spoke with sister who is in transit here. Will discuss with her goals of care. Overall prognosis is poor, neurologic devastation is severe and not recov erable. Will suggest comfort measures, hospice and terminal extubation. CCT 31 minutes.
[2021-12-11] MEDS ORDERED: DEXTROSE 50% IN WATER (25GM) 50 ML SYRINGE IV PRN (11:59)
[2021-12-11] MEDS ORDERED: INSULIN REGULAR, HUMAN 100 UNITS/1 ML SUB-Q SCH (12:00)
[2021-12-11 12:17] VITALS: BP 122/101
[2021-12-11] MEDS ORDERED: LACTATED RINGERS 1,000 ML IV ONE ×2 (13:00→14:00)
--- NOTE | 2021-12-11 13:13 | Event Note ---
Date: 12/11/21 Called by nurse that patient had lost her pulse. I came down personally to assess patient with sister at the bedside. The patient has suffered massive Intracranial hemorrhage and has likely herniated. She did not want aggressive measures so no transfer was sought. I assessed the patient and she had no heart sounds and no pulse on physical exam. CPR was not performed as this would not improve her underlying diagnosis and would only cause more physical harm and trauma to the patient. Patient was asystole on monitor. Time of was 1 305. Family at bedside and grieving appropriately.
--- NOTE | 2021-12-11 13:52 | Death Summary ---
Summary - Providers Consults: 12/10/21 19:05 Consult to Dietitian/Nutrition [CONS] Routine Physician Instructions: Reason For Exam: Reason for Consult: Evaluate nutritional intake 12/10/21 19:29 Consult to Physician [CONS] Urgent Comment: Dr. Parrish spoke with Dr. Blanco @ 1935 Consulting Provider: CATRACHITA BLANCO Physician Instructions: Reason For Exam: acute resp failure intubation Attending: GERMAN DUARTE MD - summary Date of admission: 12/10/21 21:02 Date of : 12/11/21 Significant findings: This is a 66-year-old female with GERD, dysuria, hypertension, hypokalemia, HLD, insomnia, DM, seizure disorder, chronic respiratory failure presented to the emergency department on 12/10 via EMS after being called to the snf due to patient being found unresponsive on the floor for unknown amount of time or mechanism, hypothermia and hypoxia with SPO2 of 91% on room air with hyperglycemia at blood glucose of 223. In the emergency department patient was sleepy but moved 4 extremities to painful stimuli and she began to vomit and desaturate and was placed on high flow nasal cannula. In the emergency department patient's sister was at bedside, Andria Yuan, who had an extensive discussion with the ED physician regarding goals of care within the past directives and Ms. Yuan provided verbal consent for emergency intubation but endorsed that the patient would not still not receive CPR or chest compressions in the setting of cardiac arrest. Patient was intubated in the emergency department. CT head showed intracranial hemorrhage with obstructive hydrocephalus. In setting of physical exam no corneal reflexes, pupils nonreactive to light and no gag reflex there was extensive discussion with Ms. Andria Yuan at bedside and she had just titrated understanding and declined transfer,, EVD or drain per documentation. Patient was admitted to the hospitalist service to the ICU and CODE STATUS was changed to DNR. This morning patient was noted to be hyperglycemic and was started on SSI and given IV fluid. Noted to have lactic acidosis, hyperglycemia, hypomagnesemia, transaminitis and leukocytosis. Patient remained a DNR and sister contacted family. Patient was noted to have follows and Dr. Blanco did present to the bedside. Patient was noted a systolic on the monitor and physical exam was performed. Time of was called at 1305. Family at bedside. Large intracranial hemorrhage Acute on chronic hypoxic respiratory failure Hyperglycemia Hypokalemia Hypomagnesemia Leukocytosis h/o hypertension, GERD, dysuria, kalemia, hyperlipidemia, insomnia, diabetes mellitus, seizure disorder, chronic respiratory failure
--- NOTE | 2021-12-12 09:06 | Electrocardiograph Report ---
[facility] Test Date: 2021-12-11 Test Time: 11:26:29 Pat Name: UNRULY MOHAN Department: Room: A259 1 Gender: F Automatic Clipper: SUNDAR : 1955 Requested By: PATO ARIN Order Number: [id number] Reading MD: Radames Hogan Measurements Intervals [place] Rate: 112 P: -18 MO: 140 QRS: 77 QRSD: 85 T: 17 QT: 378 QTc: 516 Interpretive Statements Sinus tachycardia Borderline ST depression, diffuse leads No previous ECG available for comparison Electronically Signed On 12-12-2021 9:06:10 EDT by Radames Hogan
[2021-12-12 14:36] LABS: Chol/HDL Ratio 1.88 %; HDL Cholesterol 81 mg/dL (40-59); LDL Cholesterol,Direct 42 mg/dL (50-130)
== END 2021-12-11 18:11 | DRG 64 ==
LOC: ED 17:48 → CC1 21:02
PROVIDERS: ADMIT Hospitalist; ATTEND Internal Medicine
PROC: 5A1935Z Respiratory Ventilation, Less than 24 Consecutive Hours (ICD-10-PCS; 2021-12-10)
PROC: 0BH17EZ Insertion of Endotracheal Airway into Trachea, Via Natural or Artificial Opening (ICD-10-PCS; 2021-12-10)
PROC: 4A033R1 Measurement of Arterial Saturation, Peripheral, Percutaneous Approach (ICD-10-PCS; principal; 2021-12-11)
DX: I62.9 Nontraumatic intracranial hemorrhage, unspecified (principal); J96.21 Acute and chronic respiratory failure with hypoxia; G93.40 Encephalopathy, unspecified; K21.9 Gastro-esophageal reflux disease without esophagitis; Z66 Do not resuscitate; I10 Essential (primary) hypertension; E78.5 Hyperlipidemia, unspecified; E86.0 Dehydration; E87.6 Hypokalemia; E83.42 Hypomagnesemia; E11.65 Type 2 diabetes mellitus with hyperglycemia; G40.909 Epilepsy, unspecified, not intractable, without status epilepticus; G47.00 Insomnia, unspecified
CPT/HCPCS: 36415; 36600; 70450; 71045; 72125; 72170; 74176; 80048; 80053; 80061; 80074; 80320; 82140; 82803; 82962; 83735; 84439; 84443; 84484; 85025; 85027; 85610; 86850; 86900; 86901; 87040; 93005; 94002; 94003; G0378; J3480; J3490; G0480; J1953; J2405; J2543; J3475